=== PATIENT | female | born 1975 | race Caucasian/White ===

== ENCOUNTER 2018-12-21 09:53 | Day surgery (SDC) | payer BC ==
[~2018-12-21 09:53] MED LIST: ACETAMINOPHEN 1,000 MG/100 ML BTL IVPB ONE; CEFAZOLIN 2 Gram 2 GM/50 ML BAG IVPB ONE; MECLIZINE 25 MG TABLET PO ONE
[2018-12-21] MEDS ORDERED: PROPOFOL 10 MG/ML VIAL IV ONE (09:54)
[2018-12-21] MEDS ORDERED: KETOROLAC 30 MG/ML VIAL IVP ONE (09:54)
[2018-12-21] MEDS ORDERED: LIDOCAINE 2% MDV (20MG/ML) 20ML VIAL IV ONE (09:54)
[2018-12-21] MEDS ORDERED: ONDANSETRON HCL IV 4 MG/2 ML VIAL IVP ONE (09:54)
[2018-12-21] MEDS ORDERED: FENTANYL PF 100MCG/2ML VIAL IV ONE (09:54)
[2018-12-21] MEDS ORDERED: MIDAZOLAM HCL 2MG/2ML VIAL IV ONE (09:54)
[2018-12-21] MEDS ORDERED: SEVOFLURANE 250 ML INH ONE (09:54)
[2018-12-21] MEDS ORDERED: RINGERS SOLUTION,LACTATED 1,000 ML IV ONE (10:20)
[2018-12-21] MEDS ORDERED: MORPHINE SULFATE 5 MG/ML PREFILLED SYRINGE IM ONE (13:35)
[2018-12-21] MEDS ORDERED: BUPIVACAINE 0.5% W/EPI MPF 30 ML VIAL SQ ONE (13:35)
[2018-12-21] MEDS ORDERED: METHYLPREDNISOLONE 40MG/VIAL IU ONE (13:35)
--- NOTE | 2019-01-03 10:10 | Operative Note ---
DATE OF SURGERY: 12/21/2018 PREOPERATIVE DIAGNOSIS: Internal derangement right knee. POSTOPERATIVE DIAGNOSES: 1. Grade 3 chondromalacia of the patella. 2. Fat pad impingement. OPERATION: 1. Right knee arthroscopy with chondroplasty of the medial femoral condyle. 2. Resection of impinging fat pad. SURGEON: Chapin Uriarte M.D. ANESTHESIA: General. PREPARATION: Chloraprep. INDIVIDUAL CONSIDERATIONS: None. PROCEDURE: The patient was taken to the operating room and placed supine on the operating room table. She had a successful induction with general anesthetic. Her right lower extremity was prepped and draped in the usual fashion. The patient had a superior lateral inflow cannula placed. The skin was infiltrated with 0.5% Marcaine with epinephrine prior. The knee was then inflated with normal saline. An inferior medial and an inferior lateral portal were made in a similar fashion. The arthroscope was introduced through the inferior lateral portal up into the pouch. The patellofemoral compartment showed an impinging fat pad, which was treated with a shaver. There was normal tracking. No loose bodies were seen in the pouch of either gutter. Medially, she had grade 3 changes on the medial femoral condyle, from approximately 45 to 90 degrees. This was smoothed off with the shaver, but luckily not down to bone. The medial meniscus and medial tibial plateau were intact. The cruciates were normal and the lateral compartment structures were normal. The knee was then irrigated out with saline to remove floating debris. The portals were closed with maximo and 20 mL of 0.25% plain Marcaine along with 40 mg of Depo-Medrol and 4 mg of morphine were injected into the knee and a sterile bulky compressive dressing was applied. The patient tolerated the procedure well. The needle and sponge counts were correct. Estimated blood loss was minimal. She was taken back to recovery in good condition. There were no complications. [facility]
== END 2018-12-21 14:40 | disposition home or self-care (01) ==
LOC: SUR 09:53
PROVIDERS: ATTEND Orthopaedic Surgery
DX: M23.91 Unspecified internal derangement of right knee (principal); M22.41 Chondromalacia patellae, right knee; M79.4 Hypertrophy of (infrapatellar) fat pad; J44.9 Chronic obstructive pulmonary disease, unspecified; F17.210 Nicotine dependence, cigarettes, uncomplicated
CPT/HCPCS: 29879; 29881; 01400; J1885; J2405; J3010; J2270; J1030; J7120